=== PATIENT | female | born 1985 | race Caucasian/White ===

== ENCOUNTER 2017-10-18 06:50 | Inpatient (IN) | payer SELFPAY ==
[2017-10-18 06:55] VITALS: BMI 27.6
[2017-10-18] MEDS: Lactated Ringers 1,000 ML 50 ML IV (07:40)
[2017-10-18] MEDS: Oxytocin 30 units/NS 500 ml 30 UNITS/500 ML IV.SOLN IV (07:50)
[2017-10-18 07:57] LABS: Hematocrit 36.5 % (37-47); Mean Corp Hgb Conc 32.9 g/gl (32-36); Mean Corpuscular Hgb 30.6 pg (27.0-32.0); Mean Corpuscular Volume 93.1 fL (81-99); Mean Platelet Vol. 10.2 fl (6.2-12.0); Platelet Count 138 K/mm3 (150-450); RBC Distribution Width CV 13.4 % (11.6-14.6); RBC Distribution Width SD 45.5 fl (35.1-43.9); Red Blood Count 3.92 M/mm3 (4.2-5.4)
[2017-10-18 07:58] LABS: Scan Indicated on CBC? Y/N NO
[2017-10-18] MEDS: Nalbuphine 10 MG/ML Ampul IV ×2 (16:51→17:14)
--- NOTE | 2017-10-18 18:10 | PCM.HP.OB ---
History Date of Admission: 10/18/17 Final DONOVAN: 10/13/17 Final DONOVAN Source: US <20 weeks Gestational age: 40 Weeks and 5 Days History of this : 31-year-old 4 para 2021 at 40-5/7 weeks gestation with EDC of 10/13/2017 by last menstrual period confirmed by 14 week ultrasound presents for elective induction of labor. She denies any vaginal bleeding, leaking of fluid. She has had good movement. She has had no regular contractions Allergies No Known Allergies Allergy (Verified 10/18/17 08:00) Home Medications: Home Medications Vit No.130/Iron/FA [ Vitamins] 1 each PO DAILY 10/18/17 Smoking Status: Never smoker Alcohol: None Number of Fetus(es): 1 Heart Tracing: normal baseline, moderate variability TOCO Analysis: irreg ctxs upon admission History Past Pregnancies: Past Pregnancies Delivery Date Name GA/Weeks Outcome Route Weight Gender Labor Length Anesthesia Delivery Location Provider FOB Expected Delivery Method: Spontaneous Vaginal Review of Systems Constitutional: Denies: Chills, Fever Eyes: Denies: Blurred vision Cardiovascular: Denies: Chest Pain Respiratory: Denies: Cough Gastrointestinal: Denies: Abdominal Pain Skin: Denies: Rash Physical Exam General: Alert, Cooperative, No apparent distress Cardiovascular: Regular rate Lungs: Normal air movement Abdomen: Soft, Non Tender, Non-Distended, Gravid, Appropriate for Gestational Age Extremities:: Other - edema trace 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 Estimated weight is less than 4500 g and pelvis clinically adequate to expect vaginal delivery. Pitocin, artificial rupture membranes induction. May have epidural, nitrous oxide or Nubain as needed. Meconium-stained fluid noted upon artificial rupture membranes. Pediatrics will be present for delivery.
[2017-10-18] MEDS: Oxytocin 30 units/NS 500 ml 30 UNITS/500 ML IV.SOLN 334 UNITS IV (19:00)
[2017-10-18] MEDS: Methylergonovine 0.2 MG/ML Ampul IM (19:14)
--- NOTE | 2017-10-18 19:27 | PCM.OB.VAG ---
Vaginal Delivery Maternal Presentation: Elective Induction Method of Induction: Pitocin, Amniotomy Amniotic Membrane Rupture Type: Artificial Amniotic Fluid Description: Moderate meconium Final DONOVAN: 10/13/17 Final DONOVAN Source: US <20 weeks Gestational age: 40 Weeks and 5 Days Date of Procedure: 10/18/17 Pre-Operative Diagnosis: labor Post-Operative Diagnosis: same Surgery/ Procedure Performed: Spontaneous Vaginal Delivery Type of Anesthesia: Local with 1% lidocaine - 20cc for perineal repair Description of Procedure: A vigorous female infant was delivered FARHAT over a second-degree perineal laceration. A loose nuchal cord ?1 was easily reduced. The remainder the was delivered with maternal pushing and gentle traction only in less than 20 seconds. The Pitocin infusion was initiated for active management of the third stage. The cord was clamped and cut immediately due to the not being immediately vigorous. The infant was attended to by the waiting nursing staff. The placenta was delivered spontaneously and intact. The cervix and vagina were intact. The second-degree perineal laceration was repaired with 3-0 Vicryl suture in a running standard fashion. Sponge and needle counts were correct. A vaginal sweep was completed by me. Presentation: FARHAT Placental Delivery Description: Spontaneous Placenta Disposition: [facility] Cord Vessel Description: 3 Vessels Nuchal Cord Compression: Without compression Cord Entanglement: Around neck x 1, loose, True Knot(s) - x1 Estimated Blood Loss: 450cc Infant A gender: Female (1 minute): 7 (5 minute): 9 Episiotomy Description: None Laceration: 2nd degree - perineal laceration Medications given after delivery: IV Pitocin, IM Methergin - x1
[2017-10-18] MEDS: Oxytocin 30 units/NS 500 ml 30 UNITS/500 ML IV.SOLN 167 UNITS IV (19:45)
[2017-10-18] MEDS: Naproxen 250 MG Tablet PO (21:27)
[2017-10-19] VITALS: BP 122/64; PULSE 80; RESP 16; TEMP 36.6
[2017-10-19 04:00] VITALS: BP 103/63; PULSE 68; RESP 16; TEMP 36.7
[2017-10-19] MEDS: Naproxen 250 MG Tablet PO (08:19)
[2017-10-19 08:20] VITALS: BP 92/53; PULSE 83; RESP 16; TEMP 36.8; O2SAT 96
--- NOTE | 2017-10-19 08:57 | PCM.PN.OB ---
Subjective: No complaints - Physical Exam General: Alert, Oriented x3 Abdomen: Soft, Non Tender, Non-Distended - ff mid & umbilicus Extremities: No edema Vital Signs Temp Pulse Resp BP Pulse Ox 98.3 F 83 16 92/53 L 96 10/19/17 08:20 10/19/17 08:20 10/19/17 08:20 10/19/17 08:20 10/19/17 08:20 Oxygen Delivery Method Room Air Weight: 161 lb 2.526 oz Body Mass Index (BMI) 27.6 Intake and Output for Last 24 Hours 10/17/17 10/18/17 10/19/17 23:59 23:59 23:59 Intake Total 1233 / 1233 800 / 800 Output Total 900 / 900 Balance 333 / 333 800 / 800 Laboratory Tests Past 24 Hrs 10/18/17 07:40 Blood Type A POSITIVE Antibody Screen NEGATIVE Medical Necessity - Tobacco Use Smoking Status: Never smoker Assessment/Plan PPD#1 Routine care
[2017-10-19 11:30] VITALS: BP 100/58; PULSE 70; TEMP 36.9; O2SAT 96
[2017-10-19 16:00] VITALS: BP 99/57; PULSE 90; TEMP 36.9; O2SAT 96
[2017-10-19 20:55] VITALS: BP 103/63; PULSE 80; RESP 16; TEMP 36.9
[2017-10-19] MEDS: Senna/Docusate Sodium 1 Tablet PO (21:06)
[2017-10-20 02:35] VITALS: BP 96/58; PULSE 85; RESP 16; TEMP 36.9
[2017-10-20 08:10] VITALS: BP 94/60; PULSE 81; RESP 16; TEMP 36.3; O2SAT 99
--- NOTE | 2017-10-20 08:47 | PCM.PN.OB ---
Subjective: Doing well per patient and nursing staff. Ambulating and taking PO without difficulty. Voiding and passing flatus. Pain controlled without medication. without concerns. Denies any headaches, visual changes, chest pain, SOB, leg pain, increased vaginal bleeding or clots. Planning D/C home today. - Physical Exam General: Alert, Oriented x3, Cooperative HEENT: Atraumatic, Normocephalic Neck: Supple Lungs: Clear to auscultation, Normal air movement, No rhonchi, No wheeze Cardiovascular: Regular rate, Regular Rhythm, No murmurs Abdomen: Bowel Sounds Present, Soft, Non Tender, - - Fundus Firm 2 below U Extremities: No edema, - - Jordi's negative bilaterally Neurological: Deep Tendon Reflexes 2+/4 and Symmetrical Psych/Mental Status: Normal Affect, Appropriate Vital Signs Temp Pulse Resp BP Pulse Ox 97.3 F L 81 16 94/60 99 10/20/17 08:10 10/20/17 08:10 10/20/17 08:10 10/20/17 08:10 10/20/17 08:10 Oxygen Delivery Method Room Air Weight: 161 lb 2.526 oz Body Mass Index (BMI) 27.6 Intake and Output for Last 24 Hours 10/18/17 10/19/17 10/20/17 23:59 23:59 23:59 Intake Total 1233 / 1233 800 / 800 Output Total 900 / 900 Balance 333 / 333 800 / 800 Medical Necessity - Tobacco Use Smoking Status: Never smoker Assessment/Plan A: PPD#2 P: 1) D/C instructions given. 2) D/C home today 3) Follow up in 6 weeks with [facility]
--- NOTE | 2017-10-20 08:50 | PN.OBGYN_ITS ---
Subjective: Doing well per patient and nursing staff. Ambulating and taking PO without difficulty. Voiding and passing flatus. Pain controlled without medication. without concerns. Denies any headaches, visual changes, chest pain , SOB, leg pain, increased vaginal bleeding or clots. Planning D/C home today. - Physical Exam General: Alert, Oriented x3, Cooperative HEENT: Atraumatic, Normocephalic Neck: Supple Lungs: Clear to auscultation, Normal air movement, No rhonchi, No wheeze Cardiovascular: Regular rate, Regular Rhythm, No murmurs Abdomen: Bowel Sounds Present, Soft, Non Tender, - - Fundus Firm 2 below U Extremities: No edema, - - Jordi's negative bilaterally Neurological: Deep Tendon Reflexes 2+/4 and Symmetrical Psych/Mental Status: Normal Affect, Appropriate Vital Signs Temp Pulse Resp BP Pulse Ox 97.3 F L 81 16 94/60 99 10/20/17 08:10 10/20/17 08:10 10/20/17 08:10 10/20/17 08:10 10/20/17 08:10 Oxygen Delivery Method Room Air Weight: 161 lb 2.526 oz Body Mass Index (BMI) 27.6 Intake and Output for Last 24 Hours 10/18/17 10/19/17 10/20/17 23:59 23:59 23:59 Intake Total 1233 / 1233 800 / 800 Output Total 900 / 900 Balance 333 / 333 800 / 800 Medical Necessity - Tobacco Use Smoking Status: Never smoker Assessment/Plan A: PPD#2 P: 1) D/C instructions given. 2) D/C home today 3) Follow up in 6 weeks with [facility]
--- NOTE | 2017-10-20 08:51 | DCINST_ITS ---
Discharge Diet: No Restrictions Discharge Activity: Return to Normal Activity, May not drive while taking narcotic pain medications., May Shower May resume sexual activity in: 4-6 weeks Weight Bearing Status: Weight bearing as tolerated Call your doctor if your incision/area has: Sudden Increased Bleeding, Increased Pain/ Swelling, Increased Redness, Foul Smelling Discharge Call your doctor if you observe: Fever of 101 or Higher, Numbness or Tingling, Inability to urinate, Inability to have a bowel movement, Using more than one pad per hour, Shortness of breath, Chest pain, Increased palpitations ( irregular heartbeat), Calf discomfort, Uncontrolled pain Additional Instructions: If you experience any of the following, contact your healthcare provider. * Bleeding that soaks a pad every hour for 2 hours * Fever 100.4 or higher * Unrelieved incision or abdominal pain * Swelling, redness, discharge or bleeding from your incision or episiotomy site * Your incision begins to separate * Problems urinating (including inability to urinate or burning while urinating) . * Visual changes * Severe headache * Flu-like symptoms * Pain or redness in one of both of your breasts * Pain, warmth, tenderness or swelling in your legs, especially the calf area * Frequent nausea and vomiting * Symptoms of depression or anxiety If you experience any of the following, call 911 or go to the nearest Emergency Room. * Chest pain * Problems breathing * Seizure activity * Partial or complete paralysis of a body part, slurred speech, weakness or drooping of the face, or a sudden inability to walk or hold your balance Allergies/Adverse Reactions: Allergies No Known Allergies Allergy (Verified 10/18/17 08:00) Medications to take at Discharge Vit No.130/Iron/FA [ Vitamins] 1 each PO DAILY 10/18/17 Please Follow Up With: Sabina Hinton MD When: Call to make an appointment with your doctor in 6 weeks. If you had elevated Blood Pressure or 4th degree laceration you will need to be seen in 2 weeks. Primary Care Physician: Care Physician,No Primary [Primary Care Provider] - Test Results: Test results from this visit will be discussed in further detail at your follow- up appointment, if applicable.
--- NOTE | 2017-10-20 10:43 | NURSING ---
pt refused rubella injection
== END 2017-10-20 10:35 | disposition home or self-care (01) | DRG 775 ==
PROVIDERS: Admitting Provider Obstetrics & Gynecology; Visit Provider Obstetrics & Gynecology
DX: O48.0 Post-term pregnancy (principal); Z3A.40 40 weeks gestation of pregnancy; Z37.0 Single live birth; O77.0 Labor and delivery complicated by meconium in amniotic fluid; O70.1 Second degree perineal laceration during delivery; O69.2XX0 Labor and delivery complicated by other cord entanglement, with compression, not applicable or unspecified
CPT/HCPCS: 59025; 59050; 85027; 86850; 86900; 99218; J7120; G0378

== ENCOUNTER 2020-10-02 18:45 | Inpatient (IN) | payer SELFPAY ==
[2020-10-02] VITALS (27 sets, daily range): BP systolic 108–125; BP diastolic 69–74; PULSE 73–95; TEMP 36.6–37.3; O2SAT 95–99; BMI 28.0
--- NOTE | 2020-10-02 19:40 | PCM.HP.OB ---
HPI - General General Date of Admission: 10/02/20 Date of Service: 10/02/20 Chief Complaint: induction of labor HPI Narrative JUAN PABLO SOMMERS, 6 para 3-0-2-3 with DNOOVAN of 09/30/2020 presents for induction of labor. She is 40 weeks and 2 days gestation. She denies any vaginal bleeding or leaking of fluid. She is had good movement. She denies any regular contractions. has been uncomplicated to date. Maternal Data Information Final DONOVAN: 09/30/20 Gestational age: 40 2/7 PFSH PFSH Home Medications vit no.084-glig-[id number] [ Vitamin] 1 ea PO DAILY 10/18/17 [History Last Taken 1 Day Ago ~10/17/17] acetaminophen 1,000 mg PO Q8H PRN PRN tablet 10/20/17 [Rx Last Taken Unknown] naproxen 250 - 500 mg PO Q8H PRN PRN tablet 10/20/17 [Rx Last Taken Unknown] Allergy/AdvReac Type Severity Reaction Status Date / Time No Known Allergies Allergy Verified 10/18/17 08:00 Social History Smoking Status: Never smoker History Elective abortions Hx Para 2 Spontaneous abortions Hx # Term Pregnancies Ectopic pregnancies Hx # Pregnancies Multiple births # of living children ROS Constitutional Constitutional: Denies fatigue, fever(s) or malaise Eyes Eyes: Denies change in vision ENT HEENT: Denies dizziness or headache(s) Cardiovascular Cardiovascular: Denies chest pain, dyspnea or lightheadedness Respiratory/Chest Respiratory/Chest: Denies cough or dyspnea Gastrointestinal Gastrointestinal: Denies change in bowel habits Genitourinary Genitourinary: Denies burning urination or genital lesions Integumentary Integumentary: Denies rash Neurologic Neurologic: Denies confusion, dizziness, headache(s), numbness or weakness Physical Exam Const alert and no apparent distress General Appearance: cooperative HEENT normocephalic Resp normal respiratory effort Cardio regular rate GI soft to palpation GI Narrative: gravid, nontender, appropriate for gestational age Extremity no calf tenderness General Extremity: edema Skin no wounds Rashes: No rashes noted Psych activity/motor behavior normal Labs Labs Labs: Blood Type A POSITIVE Antibody Screen NEGATIVE Hct 36.5 % (37-47) L Hgb 12.0 g/dl (12.0-15.0) Rhogam given: No Assessment & Plan (1) 40 weeks gestation of : (2) History of macrosomia in infant in prior , currently : (3) Encounter for induction of labor: (4) Encounter for supervision of other normal , third trimester: PLAN: Risk benefits and alternatives to induction of labor been discussed with the patient, questions were answered to her satisfaction and consent was signed. Will likely undergo Jewell cervical ripening with Pitocin and artificial rupture of membranes. Estimated weight is less than 4500 g clinically and pelvis clinically adequate to expect vaginal delivery. May have epidural, use nitrous oxide or IV medications as needed for pain control.
[2020-10-02 20:41] LABS: Absolute Neutrophil Count 5.5 X10^3/uL (2.0-7.7); Basophil# 0.02 X10^3/uL; Basophil% 0.2 % (0-1); Eosinophil# 0.05 X10^3/uL; Eosinophils% 0.6 % (0-5); Hematocrit 33.3 % (37-47); Hemoglobin 11.3 g/dL (12.0-15.0); Lymphocyte % 23.1 % (19-41); Mean Corp Hgb Conc 33.9 g/dL (32-36); Mean Corpuscular Hgb 30.7 pg (27.0-32.0); Mean Corpuscular Volume 90.5 fL (81-99); Mean Platelet Vol. 10.7 fl (6.2-12.0); Monocyte# 0.65 X10^3/uL; Monocyte% 7.9 % (0-10); NRBC Flagged by Analyzer 0 % (0-5); Neutrophil # 5.53 X10^3/uL (2.7-7.7); Neutrophil % 67.5 % (47-70); Platelet Count 162 K/mm3 (150-450); RBC Distribution Width CV 13.3 % (11.6-14.6); RBC Distribution Width SD 44.4 fl (35.1-43.9); Red Blood Count 3.68 M/mm3 (4.2-5.4); White Blood Count 8.2 K/mm3 (4.4-11.0)
[2020-10-02] MEDS: 0.9% Normal Saline Single 100 ML IV.SOLN. INTRA-UTER (21:30)
[2020-10-02] MEDS: Lactated Ringers 500 ML 999 ML IV (22:52)
[2020-10-02] MEDS: Lactated Ringers 1,000 ML 200 ML IV (23:23)
[2020-10-03] VITALS (48 sets, daily range): BP systolic 78–124; BP diastolic 52–74; PULSE 71–90; RESP 16; TEMP 36.2–37; O2SAT 83–100
[2020-10-03] MEDS: fentaNYL-bupivacaine (epidural) 100 ML BAG EPIDURAL ×2 (00:02→05:02)
[2020-10-03] MEDS: Lactated Ringers 500 ML 999 ML IV ×2 (00:33→06:00)
[2020-10-03] MEDS: Oxytocin 30 units/NS 500 ml 30 UNITS/500 ML IV.SOLN IV (00:47)
[2020-10-03] MEDS: Lactated Ringers 1,000 ML 200 ML IV (05:02)
[2020-10-03] MEDS: Oxytocin 30 units/NS 500 ml 30 UNITS/500 ML IV.SOLN 334 UNITS IV (08:34)
--- NOTE | 2020-10-03 08:40 | EX.PCM.OBRPT ---
Assessment & Plan (1) Normal vaginal delivery: (2) 40 weeks gestation of : Maternal Data Information Final DONOVAN: 09/30/20 Gestational age: 40w3d Vaginal Delivery Maternal Presentation Maternal Presentation: Elective Induction Maternal Presentation: history of previous macrosomic Type of Induction: Pitocin, Jewell Bulb and Amniotomy Operative Information Date of Procedure: 10/03/20 Pre-Operative Diagnosis: labor Post-Operative Diagnosis: same Surgery / Procedure Performed: Spontaneous Vaginal Delivery Type of Anesthesia: None and Epidural Special Medications: none Drain: Jewell to straight drain Estimated Blood Loss: 200 Time of Delivery: 08:32 Findings Description of Procedure: A vigorous male infant was delivered FARHAT over a small first-degree perineal laceration. A loose nuchal cord ?1 was easily reduced. The remainder the was delivered with maternal pushing and gentle traction only in less than 15 seconds. The Pitocin infusion was initiated for active management of the third stage. The cord was clamped and cut after 1 minute. The was attended to by the waiting nursing staff. The placenta was delivered spontaneously and intact. The cervix and vagina were intact. The small laceration was hemostatic and not repaired. Sponge and needle counts were correct. A vaginal sweep was completed by me. Presentation: FARHAT Amniotic Membrane Rupture Type: Artificial Amniotic Fluid Description: Clear Placental Delivery Description: Spontaneous Placenta Disposition: [facility] Cord Vessel Description: 3 Vessels Cord Entanglement: Around neck x 1, loose Nuchal Cord Compression: Without compression A Gender: Male (1 minute): 8 (5 minute): 9 Delayed Cord Clamping: Yes Admit VTE Documentation VTE Present on Admission: No VTE Mechan Device Prophylaxis: None VTE Pharm Prophylaxis Ordered: No Reason Prophylaxis Not Ordered: Procedure Not Indicated
[2020-10-04 00:55] VITALS: BP 99/56; PULSE 77; RESP 16; TEMP 36.2; O2SAT 96
[2020-10-04 04:53] VITALS: BP 97/56; PULSE 83; RESP 16; TEMP 36; O2SAT 97
--- NOTE | 2020-10-04 08:07 | PCM.PN.OB ---
Subjective Subjective Patient seen at bedside. infant. Feeling good. Ambulating and voiding without difficulty. Denies any pain. Desires discharge home today. Objective Data Objective Data Vital Signs: Vital Signs Temp Pulse Resp BP Pulse Ox 96.8 F L 83 16 97/56 L 97 10/04/20 04:53 10/04/20 04:53 10/04/20 04:53 10/04/20 04:53 10/04/20 04:53 Oxygen Delivery Method Room Air Weight: 163 lb 12.855 oz Body Mass Index (BMI) 28.0 Intake & Output: Intake and Output for Last 24 Hours 10/02/20 10/03/20 10/04/20 23:59 23:59 23:59 Intake Total 500 / 500 3730.57 / 3730.57 Output Total 4500 / 4500 Balance 500 / 500 -769.43 / -769.43 Lab / Micro Data Result Diagrams: 10/02/20 20:00 ROS Eyes Eyes: Denies blurry vision, change in vision or spots in vision ENT HEENT: Denies dizziness or headache(s) Cardiovascular Cardiovascular: Denies abdominal pain, chest pain or dyspnea Respiratory/Chest Respiratory/Chest: Denies cough, dyspnea, shortness of breath at rest or shortness of breath with exertion Gastrointestinal Gastrointestinal: Denies abdominal pain, diarrhea or vomiting Genitourinary Genitourinary: Denies change in urinary stream, difficulty urinating or dysuria Musculoskeletal Musculoskeletal: Reports none Integumentary Integumentary: Denies rash Neurologic Neurologic: Denies dizziness, headache(s), memory loss or weakness Physical Exam Const alert and no apparent distress General Appearance: cooperative and comfortable Exam Limitations: no limitations HEENT normocephalic Eyes General Eye: normal appearance of both eyes Neck full ROM General: normal visual inspection Chest Chest: symmetrical chest wall rise Resp normal respiratory effort and normal air movement Effort and Inspection: symmetric chest movement Auscultation: clear to auscultation bilaterally Cardio regular rate and regular rhythm GI normal to inspection, nondistended, normoactive bowel sounds Back/Spine normal ROM Extremity full ROM and no calf tenderness General Extremity: normal exam except as noted Skin no rashes or lesions noted Neuro CN's II-XII intact bilaterally Psych mental status grossly normal Assessment & Plan (1) Normal vaginal delivery: PLAN: PPD #1 Routine care Breast feeding support Discharge home
--- NOTE | 2020-10-04 08:09 | PCM.DC ---
Discharge Instructions Diet Discharge Diet: No restrictions Activity May resume sexual activity in: 6-8 weeks Weight Bearing Status: Weight bearing as tolerated Dressing / Incision Call your doctor if you observe: Fever of 101 or Higher, Inability to urinate, Using more than 1 pad per hour, Shortness of breath, Chest pain, Calf discomfort and Uncontrolled pain Follow Up Care Please Follow Up With: Hilda Guillermo CNM When: 2 weeks virtual visit/ 6 weeks in office Test Results: Test results from this visit will be discussed in further detail at your follow-up appointment, if applicable. Discharge Plan Admission Admit Date/Time: 10/02/20 18:45 Primary Reason for Your Visit: Induction of labor Attending Provider: Sabina Hinton Primary Care Provider: Care Physician,No Primary Instructions Patient Instructions: After a Vaginal , Breast Care After Discharge Orders/Prescriptions Prescriptions: Continued Vitamin 1 EACH tablet 1 ea PO DAILY RF: 0 Discontinued acetaminophen 500 MG tablet 1,000 mg PO Q8H PRN PRN (Reason: MILD PAIN (1-3/10)/Temp>99.6F) RF: 0 Referrals / Follow Up: Care Physician,No Primary [Primary Care Provider] - Disposition Disposition (needs filled in before D/C Order can be placed): Home, Self Care
[2020-10-04 08:30] VITALS: BP 106/51; PULSE 69; RESP 16; TEMP 36.6; O2SAT 96
[2020-10-04 13:03] VITALS: BP 101/63; PULSE 80; RESP 16; TEMP 36.2
--- NOTE | 2020-10-09 17:23 | NURSING ---
no answer on the follow up phone call left voice mail
== END 2020-10-04 13:39 | disposition home or self-care (01) | DRG 807 ==
PROVIDERS: Admitting Provider Obstetrics & Gynecology; Visit Provider Obstetrics & Gynecology
DX: O69.81X0 Labor and delivery complicated by cord around neck, without compression, not applicable or unspecified (principal); O70.0 First degree perineal laceration during delivery; Z37.0 Single live birth; Z3A.40 40 weeks gestation of pregnancy
CPT/HCPCS: 59025; 59050; 85025; 86850; 86900; 86901; 99218; J7120; G0378

== ENCOUNTER → 2022-09-18 | Outpatient (CLI) | payer SELFPAY ==
[2022-09-22 00:07] LABS: Chlamydia By Nucleic Acid AMP Negative (Negative); Gonococcus By Nucleic Acid AMP Negative (Negative)
[2022-09-23 16:09] LABS: HPV APTIMA, High Risk Negative (Negative)
== END | disposition home or self-care (01) ==
LOC: LABSPEC 16:04
PROVIDERS: Referring Provider Obstetrics & Gynecology; Visit Provider Obstetrics & Gynecology
DX: Z34.90 Encounter for supervision of normal pregnancy, unspecified, unspecified trimester (principal); Z3A.00 Weeks of gestation of pregnancy not specified
CPT/HCPCS: 87086; 87491; 87591; 87624; 88175; G0145

== ENCOUNTER → 2022-11-26 | Outpatient (CLI) | payer SELFPAY, OTHER ==
--- NOTE | 2022-11-26 12:20 | US_ITS ---
STUDY: SECOND AND THIRD TRIMESTER OBSTETRICAL ULTRASOUND REASON FOR EXAM: Female, 37 years old anatomy scan TECHNIQUE: Transabdominal and Transvaginal PRIOR ULTRASOUND: None. FINDINGS: There is a single intrauterine fetus. The fetus is in a transverse lie with the head on the maternal right side. There is demonstrated cardiac activity with a heart rate of 161 bpm. There is a normal amniotic fluid volume. The largest amniotic fluid pocket measures 4.7 cm. The placenta is anterior in location and is not low lying. There are Grade 0 placental changes. The cervix measures 3.9 cm in length and closed. The bilateral adnexal regions are normal. BPD: 4.8 cm = 20 weeks, 3 day(s) HC: 17.9 cm = 20 weeks, 3 day(s) AC: 15.5 cm = 20 weeks, 5 day(s) FL: 3.2 cm = 19 weeks, 6 day(s) EGA by ultrasound: 20 weeks 3 day(s) DONOVAN by ultrasound: 04/12/2023 Estimated weight: 349 grams Weight percentile: 33% ANATOMY: Gender: Refer to tech notes. Mother does not want to know gender. Cranium: Normal lateral ventricles. Normal choroid plexus. Normal cerebellum. Normal cisterna magna. Normal face, nose and lips. Chest: Normal 4-chamber heart. Abdomen/Pelvis: Normal diaphragm. Normal stomach. Normal abdominal wall. Normal cord insertion. Normal 3 vessel cord. Normal kidneys. Normal bladder. Spine: Normal cervical spine. Normal thoracic spine. Normal lumbar spine. Normal sacrum. Extremities: Normal bilateral upper extremities. Normal bilateral lower extremities. US/OB Anatomy w/ Transvaginal IMPRESSION: Living intrauterine with estimated gestational age of 20 weeks and 3 days. No obvious anomalies. EFW is 349 g which is in the 33rd percentile. Electronically Signed: Javier Cordero MD at 21:05 EDT ,
[2022-11-26 14:08] LABS: Absolute Lymphocyte Count 2.33 X10^3/uL (0.83-4.51); Basophil# 0.05 X10^3/uL; Basophil% 0.4 % (0-1); Eosinophil# 0.04 X10^3/uL; Eosinophils% 0.3 % (0-5); Hematocrit 30.9 % (37-47); Hemoglobin 10.1 g/dL (12.0-15.0); Lymphocyte # 2.33 X10^3/ul (0.83-4.51); Lymphocyte % 18.9 % (19-41); Mean Corp Hgb Conc 32.7 g/dL (32-36); Mean Corpuscular Hgb 29.5 pg (27.0-32.0); Mean Corpuscular Volume 90.4 fL (81-99); Mean Platelet Vol. 9.8 fl (6.2-12.0); Monocyte% 6.5 % (0-10); NRBC Flagged by Analyzer 0 % (0-5); Neutrophil # 8.95 X10^3/uL (2.7-7.7); Neutrophil % 72.6 % (47-70); Platelet Count 226 K/mm3 (150-450); RBC Distribution Width CV 14.7 % (11.6-14.6); RBC Distribution Width SD 47.8 fl (35.1-43.9); Red Blood Count 3.42 M/mm3 (4.2-5.4); White Blood Count 12.3 K/mm3 (4.4-11.0)
[2022-11-26 15:40] LABS: HIV - WCH Non-Reactive (Nonreactive); Hepatitis B Surface Antigen Non-Reactive (Nonreactive); Hepatitis C Antibody Non-Reactive (Nonreactive); Rubella IgG Non-Reactive (Nonreactive); Syphilis Antibodies Non-reactive
== END | disposition home or self-care (01) ==
PROVIDERS: Obstetrics & Gynecology; Referring Provider Obstetrics & Gynecology; Visit Provider Obstetrics & Gynecology
DX: O09.90 Supervision of high risk pregnancy, unspecified, unspecified trimester (principal); Z3A.00 Weeks of gestation of pregnancy not specified
CPT/HCPCS: 36415; 76805; 76817; 85025; 86703; 86762; 86780; 86803; 86850; 86900; 86901; 87340

== ENCOUNTER → 2023-01-20 | Outpatient (CLI) | payer OTHER, SELFPAY ==
[2023-01-20 07:23] LABS: Absolute Lymphocyte Count 1.91 X10^3/uL (0.83-4.51); Absolute Neutrophil Count 8.4 X10^3/uL (2.0-7.7); Basophil# 0.05 X10^3/uL; Basophil% 0.4 % (0-1); Eosinophil# 0.08 X10^3/uL; Eosinophils% 0.7 % (0-5); Hematocrit 28.2 % (37-47); Hemoglobin 8.9 g/dL (12.0-15.0); Lymphocyte # 1.91 X10^3/ul (0.83-4.51); Lymphocyte % 16.5 % (19-41); Mean Corp Hgb Conc 31.6 g/dL (32-36); Mean Corpuscular Hgb 29.3 pg (27.0-32.0); Mean Corpuscular Volume 92.8 fL (81-99); Mean Platelet Vol. 9.7 fl (6.2-12.0); Monocyte# 0.93 X10^3/uL; Monocyte% 8.1 % (0-10); NRBC Flagged by Analyzer 0 % (0-5); Neutrophil # 8.35 X10^3/uL (2.7-7.7); Neutrophil % 72.3 % (47-70); Platelet Count 200 K/mm3 (150-450); RBC Distribution Width CV 13.5 % (11.6-14.6); RBC Distribution Width SD 46.3 fl (35.1-43.9); Red Blood Count 3.04 M/mm3 (4.2-5.4); White Blood Count 11.6 K/mm3 (4.4-11.0)
[2023-01-20 07:45] LABS: Glucose GTT-Gestation. Fasting 98 mg/dL (<105)
[2023-01-20 08:35] LABS: Glucose GTT-Gestational 1 Hr 160 mg/dL (<190)
[2023-01-20 08:51] LABS: HIV - WCH Non-Reactive (Nonreactive); Syphilis Antibodies Non-reactive
[2023-01-20 09:55] LABS: Glucose GTT-Gestational 2 Hr 173 mg/dL (<165)
[2023-01-20 11:32] LABS: Ferritin 7 ng/mL (8-252); Iron 85 ug/dL (50-170); Iron Binding Capacity,Total 613 ug/dL (250-450); PERCENT IRON SATURATION 13.9 % (15.0-55.0)
[2023-01-20 11:40] LABS: Glucose GTT-Gestational 3 Hr 128 L (<145)
== END | disposition home or self-care (01) ==
PROVIDERS: Registered Nurse; Referring Provider Advanced Practice Midwife; Visit Provider Advanced Practice Midwife
DX: Z13.1 Encounter for screening for diabetes mellitus (principal); O99.019 Anemia complicating pregnancy, unspecified trimester; Z3A.00 Weeks of gestation of pregnancy not specified
CPT/HCPCS: 36415; 82728; 82950; 82951; 82952; 83540; 83550; 85025; 86703; 86780

== ENCOUNTER → 2023-02-26 | Outpatient (CLI) | payer OTHER, SELFPAY ==
[2023-02-26 15:12] LABS: Absolute Lymphocyte Count 1.74 X10^3/uL (0.83-4.51); Absolute Neutrophil Count 8.5 X10^3/uL (2.0-7.7); Basophil# 0.05 X10^3/uL; Basophil% 0.4 % (0-1); Eosinophil# 0.05 X10^3/uL; Eosinophils% 0.4 % (0-5); Hematocrit 31.4 % (37-47); Hemoglobin 10.1 g/dL (12.0-15.0); Lymphocyte # 1.74 X10^3/ul (0.83-4.51); Lymphocyte % 15.3 % (19-41); Mean Corp Hgb Conc 32.2 g/dL (32-36); Mean Corpuscular Hgb 30.5 pg (27.0-32.0); Mean Corpuscular Volume 94.9 fL (81-99); Mean Platelet Vol. 10.2 fl (6.2-12.0); Monocyte# 0.91 X10^3/uL; NRBC Flagged by Analyzer 0 % (0-5); Neutrophil # 8.46 X10^3/uL (2.7-7.7); Neutrophil % 74.5 % (47-70); Platelet Count 172 K/mm3 (150-450); RBC Distribution Width CV 15.5 % (11.6-14.6); Red Blood Count 3.31 M/mm3 (4.2-5.4); White Blood Count 11.4 K/mm3 (4.4-11.0)
== END | disposition home or self-care (01) ==
LOC: LAB 14:08
PROVIDERS: Referring Provider Advanced Practice Midwife; Visit Provider Advanced Practice Midwife
DX: O09.529 Supervision of elderly multigravida, unspecified trimester (principal); O99.019 Anemia complicating pregnancy, unspecified trimester
CPT/HCPCS: 36415; 85025

== ENCOUNTER → 2023-03-18 | Outpatient (CLI) | payer OTHER, SELFPAY ==
--- NOTE | 2023-03-18 13:54 | US_ITS ---
EXAM: US , LIMITED CLINICAL INDICATION: growth TECHNIQUE: Real-time limited ultrasound of the maternal uterus with image documentation. COMPARISON: 11/26/2022 FINDINGS: GESTATIONAL AGE: Estimated gestational age: 38 weeks, 3 days compared to 36 weeks, 4 days by dates. DONOVAN: 03/29/2023 based on size. EFW: Estimated weight: 3566 g (94.7%). BPD: 9.21 cm. HC: 34.35 cm. AC: 35.42 cm. FL: 7.34 cm. POSITION: position is transverse right. HEART RATE: heart rate is 138 bpm. PLACENTA: Anterior placenta. AMNIOTIC FLUID: Amniotic fluid volume is 16.5 cm. CERVIX: The cervix is closed measuring 6.8 cm. ADNEXA: The maternal ovaries are not visualized. US/OB Limited With Biometrics IMPRESSION: Single viable IUP with an estimated gestational age of 38 weeks, 3 days by size compared to 36 weeks, 4 days by dates. 3566 g. Electronically Signed: Tomas Hernandez DO at 23:46 EST ,
== END | disposition home or self-care (01) ==
PROVIDERS: Visit Provider Obstetrics & Gynecology
DX: O09.529 Supervision of elderly multigravida, unspecified trimester (principal); O24.419 Gestational diabetes mellitus in pregnancy, unspecified control; Z3A.00 Weeks of gestation of pregnancy not specified
CPT/HCPCS: 76816

== ENCOUNTER → 2023-03-24 | Outpatient (CLI) | payer OTHER, SELFPAY | END | disposition home or self-care (01) | LOC: LABSPEC 13:23 | PROVIDERS: Visit Provider Obstetrics & Gynecology | DX: Z34.90 Encounter for supervision of normal pregnancy, unspecified, unspecified trimester (principal) | CPT/HCPCS: 87081 ==

== ENCOUNTER 2023-03-30 09:15 | Outpatient (CLI) | payer OTHER, SELFPAY ==
--- NOTE | 2023-03-30 09:26 | US_ITS ---
INDICATION: per doctor order EXAMINATION: Ultrasound US Biophysical Profile W/O Nonst TECHNIQUE: Transabdominal pelvic ultrasound was performed. COMPARISON: Prior study dated: 03/18/2023. LMP: Unknown. Beta-hCG: Unknown. Provided EGA: None. FINDINGS: INTRAUTERINE GESTATION(s): Single. HEART MOTION is 155 bpm. AMNIOTIC FLUID INDEX (GURVINDER): 1.2 cm, largest amniotic pocket measures 4.3 cm. BIOPHYSICAL PROFILE (BPP): 11/03 -- Breathin/2. -- Movement: 2/2. -- Tone: 2/2. --GURVINDER: 2/2. PRESENTATION: Cephalic PLACENTA: Anterior. There is no placenta previa or abruption. There is a grade 2 placenta. CERVIX: Cervix is not visualized. MATERNAL OVARIES: Not visualized. FREE FLUID: None. US/Biophysical Prof W/O Non Stres IMPRESSION: Normal GURVINDER with a score of 8 out of 8. Electronically Signed: Ming Vargas MD at 10:39 EST ,
[2023-03-30 09:30] VITALS: BP 107/62; PULSE 107
[2023-03-30 09:31] VITALS: TEMP 36.6; O2SAT 99
[2023-03-30 09:32] VITALS: PULSE 111; O2SAT 100
[2023-03-30 09:59] VITALS: BMI 27.3
--- NOTE | 2023-03-30 10:36 | OB.TRI.PN ---
Progress Notes Date of Service: 03/30/23 Progress Note: Patient presents for triage evaluation secondary to tachycardia in office FHT: 150 Moderate variability reactive no decelerations category I tracing [place]: no Contractions Assessment and plan: BPP 11/03, Reactive NST, reassuring maternal and status patient discharged to home to follow-up at next appt. See problem list details for additional plan information. Charges/Coding Multi Select Codes Urinary/Genital Urinary/Genital CPT Codes: 78888-97 non-stress test Interp Assessment & Plan (1) Sterilization: COMMENT: plan PPTL PPD, will try and schedule in advance because IOL is scheduled. 18 IOL and 04/06 PPTL with JV if able or SM (2) Transverse lie of fetus: COMMENT: Resolved (3) Gestational diabetes: QUALIFIERS: Gestational diabetes mellitus control: diet-controlled COMMENT: QID testing, nutrition counseling. starting metformin 03/10/23 (4) Anemia affecting : COMMENT: iron binding levels iron infusions- symptomatic at 8.9 (5) Anxiety during : COMMENT: on zoloft, counseling recommended/encouraged. (6) AMA (advanced maternal age) multigravida 35+: COMMENT: declines genetic screening, discussed 36 week growth US and delivery by 39-40 weeks (7) Family history of autism in sibling: COMMENT: niece(sister's child) (8) Supervision of high-risk : COMMENT: PRR , DONOVAN 04/12/23, PC Peg Reddy Ellie, Alvin, Ad (9) : QUALIFIERS: Weeks of gestation: 37 weeks Qualified Code(s): Z3A.37 - 37 weeks gestation of COMMENT: normal anatomy. declined genetic & carrier testing
== END 2023-03-30 11:15 | disposition home or self-care (01) ==
LOC: WPOUT 09:25 → WP 09:25
PROVIDERS: Referring Provider Obstetrics & Gynecology; Visit Provider Obstetrics & Gynecology
DX: O36.8330 Maternal care for abnormalities of the fetal heart rate or rhythm, third trimester, not applicable or unspecified (principal); O32.2XX0 Maternal care for transverse and oblique lie, not applicable or unspecified; Z3A.37 37 weeks gestation of pregnancy; O24.410 Gestational diabetes mellitus in pregnancy, diet controlled; O99.013 Anemia complicating pregnancy, third trimester; O99.343 Other mental disorders complicating pregnancy, third trimester; F41.9 Anxiety disorder, unspecified; O09.513 Supervision of elderly primigravida, third trimester; R00.0 Tachycardia, unspecified
CPT/HCPCS: 59025; 59050; 76819; 99221; G0378

== ENCOUNTER 2023-04-05 06:55 | Inpatient (IN) | payer SELFPAY, OTHER ==
[2023-04-05] VITALS (65 sets, daily range): BP systolic 92–138; BP diastolic 50–73; PULSE 65–95; TEMP 36.3–37.2; O2SAT 98–100; BMI 28.0
--- OUTSIDE RECORDS SUMMARY | 2023-04-05 07:01 | XMS RPT_ITS | CCD ---
Author Name Unknown Address [address] [place] [address] Organization [facility] Care Team Providers Care Remelt Worker Name Role Phone Unavailable Primary Care Provider Unavailabl e Medications Completed/Discontinued Medications Medication Drug Class(es) Dates Sig (Normalized) Sig (Original) NUTRITIONAL SUPPLEMENT/FIBER (ORANGE [id number] ORAL) (1 source) NUTRITIONAL SUPPLEMENT/FIBER (ORANGE [id number] ORAL) Take by mouth. 0 Active Problems Problem Classification Problem Date Documented Date Episodic/Chronic Endometriosis (1 source) Endometriosis (clinical); Translations: [Endometriosis, unspecified] Onset: 04-16-2017 04-16-2017 Chronic Results Test Name Value Interpretation Reference Range Facil ity Encounters Encounter Date Encounter Type Care Provider Facility Start: 08-26-2022 Telephone encounter Sabina Hinton MD Work Phone: OB/Gynecology Procedures Date Procedure Procedure Detail Performing Clinician Start: 03-27-2020 Antibody screen Plan of Treatment Date Care Activity Detail Author Start: 11-30-2024 HPV TESTING HPV TESTING [facility] Start: 11-30-2024 PAP TESTING PAP TESTING [facility] Start: 11-27-2022 Influenza vaccination INFLUENZA (Sea son Ended) [facility] Start: 03-29-2022 DEPRESSION ASSESSMENT DEPRESSION ASS ESSMENT [facility] Start: 10-21-2006 Urine microalbumin profile DTAP,TDAP ,TD (1 - Tdap) [facility] Start: 04-23-1988 COVID-19 VACCINE (#1) COVID-19 VACCI NE (#1) [facility] Start: 1985 HEPATITIS B (1 of 3 - 3-dose series) HEPATITIS B (1 of 3 - 3-dose series) [facility] Social History Date Type Detail Facility Start: 04-08-2017 Tobacco smoking stat us INIS Never smoked tobacco [facility] Work Phone: Start: 04-08-2017 Tobacco use and exposure Smokeless tobacco non-user [facility] Work Phone: Start: 11-19-2020 Alcohol intake Current non-dr orchid transplanter of alcohol (finding) [facility] Start: 03-18-2020 Education 8 [facility] Start: 1985 Sex Assigned At Not on file C [facility] Medical Equipment Procedure Code Equipment Code Equipment Origin al Text Equipment Identifier Dates Start: 07-22-2020 End: 08-26-2022 Note 09-02-2022 Telephone Encounter - Sarah Rojas RN - 09/02/2022 10:49 AM EDTTelephone Encounter - Trish Cabrera RN - 09/02/2022 8:05 AM EDTTelephone Encounter - Sabina Hinton MD - 08/28/2022 2:22 PM EDT Note Date & Type Note Facility 09-02-2022 Miscellaneous Notes Formattin g of this note might be different from the original. Spoke with patient. Notified of the below information and message from Dr. Hinton. Aware this was addressed with administration last week. Patient voiced her appreciation for the efforts, however she plans to give a new office a try. If she is unhappy there, she will likely come back to our office. Again, voiced her appreciation to Dr. Hinton and staff. Sarah Rojas RN Left message for patient to return yassine call. I have also given this message to Eladia to share with Admin Please forward this complaint to admin. We have lost a lot of self pain/religous pay patients for this. Tell her I will do my best to save her appointments on certain days to help w/ her arranging transport because I certainly understand this frustration. I also try to space out appointments for average risk patients so they don't have to come every 2 weeks exactly to help w/ this burden. Sabina Hinton MD Patient notified. Transferred to director of financial aid to schedule PNOB and NOB. Patient voiced her frustration about the self pay process. She is unable to schedule appointments ahead of time with the financial advocates. She's told that only one appointment at a time can be set up. Patient states this is very difficult with arranging for transportation especially in the third trimester. Because of this she may or may not continue to be seen with the Clinic. Sarah Rojas RN Left message for patient to call office. Sarah Rojas RN schedule PNOB and NOB. Rx ordered. Sabina Hinton MD Patient called stating that she is . Lmp: 07/12/2022. Is c/o nausea that is lasting until from the time that she wakes up until around 3 pm. Patient states during previous she tried taking otc b6 and unisom and it was not effective and is hoping that she can get a Rx. Phone number listed is a message number only.Patient was not able to schedule appointment for Pnob d/t no Self pay referral entered. Nurse entered referral. documented in this encounter [facility] History of Past illness Narrative 07-22-2020 Note Date & Type Note Facility documented as of this encounter (statuses as of 09/02/2022) [facility] Summary Purpose Family History No Family History Records FoundNo Family History Records Found Advance Directives No Advanced Directives Records FoundNo Advanced Directives Records Found Additional Source Comments INFORMATION SOURCE (unrecogn ized section and content) DATE CREATED AUTHOR AUTHOR'S ORGANIZ ATION 09/07/2022 [facility] Source Comments (unrecognize d section and content) In the event this informatio n is protected by the Federal Confidentiality of Alcohol and Drug Abuse Patient Records regulations: The Federal rules restrict any use of the information to criminally investigate or prosecute any alcohol or drug abuse patient.[facility] Reason for Visit (unrecogniz ed section and content) FOR RECORDS PERTAINING TO PATIENTS WHO ARE OR HAVE BEEN ENROLLED IN A CHEMICAL DEPENDENCY/SUBSTANCEABUSE PROGRAM, SOME INFORMATION MAY BE OMITTED. This clinical summary was aggregated from multiple sources. Caution should be exercised in using it in the provision of clinical care. This summary normalizes information from multiple sources, and as a consequence, information in this document may materially change the coding, format and clinical context of patient data. In addition, data may be omitted in some cases. CLINICAL DECISIONS SHOULD BE BASED ON THE PRIMARY CLINICAL RECORDS. [facility]. provides no warranty or guarantee of the accuracy or completeness of information in this document.
[2023-04-05 07:54] LABS: Absolute Lymphocyte Count 1.74 X10^3/uL (0.83-4.51); Absolute Neutrophil Count 5.1 X10^3/uL (2.0-7.7); Basophil# 0.02 X10^3/uL; Basophil% 0.3 % (0-1); Eosinophil# 0.03 X10^3/uL; Eosinophils% 0.4 % (0-5); Hematocrit 33.9 % (37-47); Hemoglobin 11.1 g/dL (12.0-15.0); Lymphocyte # 1.74 X10^3/ul (0.83-4.51); Lymphocyte % 23.2 % (19-41); Mean Corp Hgb Conc 32.7 g/dL (32-36); Mean Corpuscular Hgb 30.3 pg (27.0-32.0); Mean Corpuscular Volume 92.6 fL (81-99); Mean Platelet Vol. 10.4 fl (6.2-12.0); Monocyte# 0.56 X10^3/uL; Monocyte% 7.5 % (0-10); NRBC Flagged by Analyzer 0 % (0-5); Neutrophil # 5.11 X10^3/uL (2.7-7.7); Neutrophil % 67.9 % (47-70); Platelet Count 148 K/mm3 (150-450); RBC Distribution Width SD 50.9 fl (35.1-43.9); Red Blood Count 3.66 M/mm3 (4.2-5.4); White Blood Count 7.5 K/mm3 (4.4-11.0)
[2023-04-05] MEDS: Lactated Ringers 1,000 ML 50 ML IV (08:00)
[2023-04-05] MEDS: LACTATED RINGERS 500 ML 999 ML IV (08:16)
--- NOTE | 2023-04-05 08:49 | HP.PCM.OB_ITS ---
HPI - General General Date of Admission: 04/05/23 Chief Complaint: induction HPI Narrative JUAN PABLO SOMMERS, is a 37 F who presents at 39 weeks for IOL for GDM, glucose managed with metformin. 3566g EFW on 03/18 Maternal Data Information DONOVAN Calculator Estimated Delivery Date Method Current WG Current Estimate 04/11/23 Ultrasound #1 39w 1d Other Estimates 04/18/23 LMP (Certain) 38w 1d PFSH PFSH Medical History 40 weeks gestation of LGA (large for gestational age) fetus Normal vaginal delivery Home Medications vits no.130-ferrous fum 27 mg iron-folic acid 800 mcg tablet ( Vitamin) 1 ea PO DAILY 10/18/17 [History Last Taken 03/29/23] promethazine 12.5 mg tablet 12.5 mg PO Q6H PRN nausea and vomiting 09/08/22 [History Last Taken Unknown] ondansetron 4 mg disintegrating tablet 4 mg PO Q8H PRN nausea and vomiting #60 tabs 09/18/22 [Rx Last Taken Unknown] sertraline 25 mg tablet (Zoloft) 25 mg PO DAILY #30 tabs 11/26/22 [Rx Last Taken Unknown] metformin 500 mg tablet 500 mg PO BID #60 tabs 03/10/23 [Rx Last Taken 03/30/23] Allergy/AdvReac Type Severity Reaction Status Date / Time No Known Allergies Allergy Verified 04/01/23 14:27 Surgical History History of surgery Social History adopted: No household members: spouse and children number of children: 4 current occupational status: unemployed current occupational exposures/hazards: No pets and animals: No history of recent travel: No sexually active: Yes Smoking Status: Never smoker alcohol intake: never substance use type: does not use well-balanced diet: daily or most days caffeine: No eating out: rarely or never during the past year weight has: remained stable what type of physical activity do you participate in: none patricia/cheondoism: [facility] seatbelt use: sometimes do you feel safe at home: Yes 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 Date Name GA/Weeks Outcome Route Bth Weight Gen Labor Lgth Anesthesia Del Locatn Provider FOB 04/03/09 miscarriage @ 9wks 05/17/10 Maureen live - full term 8#13oz Female Rickie Duong 04/14/12 Peg 38 live - full term 8#6oz Female Rickie Duong 10/28/15 miscarriage @ 5wks 10/18/17 Thais 41 live - full term 10# 1 oz Female [facility] Dr. Jamaal Duong 10/23/20 Garry 40 live - full term 9#5oz Male [facility] Dr.Russell Duong Visit Details Expected Delivery Route/Plan with PPTL the next day Labor Preferences- CB/BF classes: [] labor support person: [] labor intervention preferences: [] pain management options preferred: epidural desired cut cord/dad catch: [] : [] PP control planned: [] discussed possible routes of delivery and associated risks: [] special requests: [] Plans Covid status: declined Flu vaccine: dec Tdap vaccine: dec Rhogam: na LARC form signed: declined movement and labor precautions reviewed. Problem list reviewed and updated with the most current plan of care details and appropriate orders placed. Relevant counseling for the gestational age provided. Continue routine care and follow up unless otherwise noted in visit notes/problem list details OB Flowsheet Initial Weight: Not Recorded Date -?-?-?-?-?-?-?-?-?-?-?-?- EGA Weight BP Urine Prot -?-?-?-?-?-?-?-?-?-?-?-?- Glucose FHR FuHt Pres Dilation -?-?-?-?-?-?-?-?-?-?-?-?- Effaced St Visit Note 10/16/22 -?-?-?-?-?-?-?-?-?-?-?--?- 14w 5d 135 lb 8 oz 101/66 Trac e -?-?-?-?-?-?-?-?-?-?-?-?- Negative 160 -?-?-?-?-?-?-?-?-?-?-?-?- JV- heart tones on bedside handheld us today. she has some nausea but not enough to cause vomiting. plan for anatomy scan in 5-7 weeks at [facility]. 11/26/22 -?-?-?-?-?-?-?-?-?-?-?-?- 20w 4d 144 lb 2 oz 118/71 Nega tive -?-?-?-?-?-?-?-?-?-?-?-?- Negative 160 20 -?-?-?-?-?-?-?-?-?-?-?-?- KW- +fm. had US today. no vb/ctx. concerns with increased anxiety today, requesting something to help with this. Zoloft started 12/21/22 -?-?-?-?-?-?-?-?-?-?-?-?- 24w 1d 148 lb 2 oz 113/75 Trac e -?-?-?-?-?-?-?-?-?-?-?-?- Negative 150 23 -?-?-?-?-?-?-?-?-?-?-?-?- KW-no vb/crampin g. +FM. Doing well with the zoloft. compression hose recommended for varicosities. requesting 3 hour gct instead of one hour because she has had to do them with her last 2 pregnancies. 01/20/23 -?-?-?-?-?-?-?-?-?-?-?-?- 28w 3d 157 lb 2 oz 101/69 Nega tive -?-?-?-?-?-?-?-?-?-?-?-?- Negative 145 27 -?-?-?-?-?-?-?-?-?-?-?-?- LC- no vb/ctx//l of. good fm. having increased fatigue, sob/weakness. hbg 8.9. iron studies ordered. will obtain iron infusions based if indicated. pt agreeable. LC- no vb/ctx//lof. good fm. having increased fatigue, sob/weakness. hbg 8.9. iron studies ordered. will obtain iron infusions based if indicated. pt agreeable. failed 3 hour glucose. will set up with glucose monitoring/nutrition for GDM. 02/15/23 -?-?-?-?-?-?-?-?-?-?-?-?- 32w 1d 159 lb 4 oz 99/66 Trac e -?-?-?-?--?-?-?-?-?-?-?-?- Negative 135 31 -?-?-?-?-?-?-?-?-?-?-?-?- KW- no vb/lof/ct x. good fm. continues to be fatigued feeling weak. CBC ordered and infusion discussed. blood sugars reviewed. majority under parameters. discussed 36 week US. transverse lie today-would like version at 37 weeks if needed. 02/26/23 -?-?-?-?-?-?-?-?-?-?-?-?- 33w 5d 160 lb 99/60 -?-?-?-?-?-?-?-?-?-?-?-?- 140 33 Cephalic -?-?-?-?-?-?-?-?-?-?-?-?- kw-no vb/lof/ctx . good. fm. CBC after appt today. IF a C/S desires tubal. 03/10/23 -?-?-?-?-?-?-?-?-?-?-?-?- 35w 3d 163 lb 4 oz 122/69 Nega tive -?-?-?-?-?-?-?-?-?-?-?-?- Negative 155 35 -?-?-?-?-?-?-?-?-?-?--?-?- JV- glucose leve ls are becoming higher and there are 6 times that it was over the recommended level. starting metformin bid. start nsts twice weekly, and schedule ultrasound at 36 weeks for growth. Wants to schedule rpt section at 39 weeks with tubal if no labor and if favorable on morning of section, consider an induction. JV- glucose levels are becom ing higher and there are 6 times that it was over the recommended level. starting metformin bid. start nsts twice weekly, and schedule ultrasound at 36 weeks for growth. Wants tohave a tubal if possible after 39 week induction. 03/15/23 -?-?-?-?-?-?-?-?-?-?-?-?- 36w 1d 161 lb 2 oz 102/66 Nega tive -?-?-?-?-?-?-?-?-?-?-?-?- Negative 140 36 -?-?-?-?-?-?-?-?-?-?--?-?- LC- reactive NST . started metformin on Wednesday. did not bring log. fasting this AM 97. 03/18/23 -?-?-?-?-?-?-?-?-?-?-?-?- 36w 4d 161 lb 4 oz 100/64 Nega tive -?-?-?-?-?-?-?-?-?-?-?-?- Negative 130 -?-?-?-?-?-?-?-?-?-?-?-?- JV- NST reactive today. baby is transverse measuring 39 weeks today. she dec lines an ECV. increasing metformin to 2 500 mg tabs in am and 1 at bedtime. does not want gbs done today and prefers next visit. 03/24/23 -?-?-?-?-?-?-?-?-?-?-?-?- 37w 3d 160 lb 4 oz 122/72 Nega tive -?-?-?-?-?-?-?-?-?-?-?-?- Negative 140 37 Cephalic -?-?-?-?-?-?-?-?-?-?-?-?- JV- cephalic tod ay on bedside us. reactive nSt. pt prefers to self swab for GbS. declines pelvic exam. glucose levels are wtill in normal limits. 03/26/23 -?-?-?-?-?-?-?-?-?-?-?-?- 37w 5d 160 lb 4 oz 95/66 Nega tive -?-?-?-?-?-?-?-?-?-?-?-?- Negative 130 -?-?-?-?-?-?-?-?-?-?-?-?- SM- no vb lof go od fm no regular ctx discussed IOL 04/05 and sterilization 04/06- will try and schedule 03/30/23 -?-?-?-?-?-?-?-?-?-?-?-?- 38w 2d 159 lb 8 oz 95/65 Nega tive -?-?-?-?-?-?-?-?-?-?-?-?- Negative 170 -?-?-?-?-?-?-?-?-?-?-?-?- KW-NST today. to [facility] for extended monitoring and BPP due to tachycardia KW-NST today. to [facility] for exte nded monitoring and BPP due to tachycardia and variables 04/01/23 -?-?-?-?-?-?-?-?-?-?-?-?- 38w 4d 159 lb 2 oz 110/76 Nega tive -?-?-?-?-?-?-?-?-?-?-?-?- Negative 140 38 Cephalic 1 -?-?-?-?-?-?-?-?-?-?-?-?- SM- no vb lof go od fm no regular ctx BS controlled, plan IOL 39 and PPTL if able the next day NST FHR Rate Baby A Baseline: 140 Variability:: Moderate Accelerations:: 15 x 15 FHR Category:: Category I Uterine Activity:: irregular ROS Cardiovascular Cardiovascular: Denies abdominal pain, chest pain, diaphoresis or dyspnea Respiratory/Chest Respiratory/Chest: Denies change in mental status, chest congestion, chest tightness, cough, shortness of breath at rest, shortness of breath with exertion, breast mass, breast pain, breast skin changes, breast swelling, change in breast shape or nipple discharge Genitourinary Genitourinary: Reports change in urinary stream Musculoskeletal Musculoskeletal: Reports none Integumentary Integumentary: Reports none Neurologic Neurologic: Reports none Psychiatric Psychiatric: Reports none Endocrine Endocrinology: Reports none Hematologic/Lymphatic Hematologic/Lymphatic: Reports none Allergic/Immunologic Allergic/Immunologic: Reports none Vital Signs Vital Signs Vital Signs: 04/05/23 07:29 04/05/23 07:29 Pulse Rate 91 Blood Pressure 103/64 BP Systolic 103 BP Diastolic 64 Weight Weight: 158 lb 8.198 oz Body Mass Index (BMI) 28.0 Physical Exam Const alert, oriented x3 and no apparent distress General Appearance: cooperative, comfortable and well kempt Orientation / Consciousness: awake and oriented to person Exam Limitations: no limitations HEENT normocephalic Neck full ROM Chest inspection of chest normal Resp normal respiratory effort, normal air movement and no retractions Effort and Inspection: able to speak in complete sentences and symmetric chest movement Cardio regular rate Peripheral Pulses: pulses 2+ throughout GI normal to inspection, nondistended, normoactive bowel sounds Inspection: gravid no CVA tenderness and appearance of the vagina normal External Female Exam: normal appearance of the urethra; Negative for external lesion OB / External & Speculum: external exam normal Manual OB Exam: estimated gestational size appropriate and presentation cephalic Uterus Palpation: Negative for uterus tender Extremity normal to inspection Skin no rashes or lesions noted Neuro deep tendon reflexes 2+ bilaterally and gait normal Motor Exam: strength 5/5 throughout and clonus absent Psych Activity / Motor Behavior: appropriate eye contact Speech: normal speech Labs Labs Labs: Blood Type A POSITIVE Antibody Screen NEGATIVE Hct 33.9 % (37-47) L Hgb 11.1 g/dL (12.0-15.0) L Obstetrics Ultrasound Syphilis Total Ab Non-reactive Rubella IgG Antibody Non-Reactive (Nonreactive) Hep Bs Antigen Non-Reactive (Nonreactive) Hepatitis C Antibody Non-Reactive (Nonreactive) Chlamydia DNA (RASHARD) Negative (Negative) N.gonorrhoeae DNA (RASHARD) Negative (Negative) HIV 1&2 Antibody Non-Reactive (Nonreactive) Gest Glucose Tolerance MG/DL Rhogam given: No Assessment & Plan (1) Sterilization: COMMENT: plan PPTL PPD1, will try and schedule in advance because IOL is scheduled. 18 IOL and 04/06 PPTL with JV if able or SM (2) Gestational diabetes: QUALIFIERS: Gestational diabetes mellitus control: diet-controlled COMMENT: QID testing, nutrition counseling. starting metformin 03/10/23 PLAN: monitor glucose per protocol. contact if greater than 120 (3) AMA (advanced maternal age) multigravida 35+: COMMENT: declines genetic screening, discussed 36 week growth US and delivery by 39-40 weeks (4) Supervision of high-risk : COMMENT: PRR , DONOVAN 04/12/23, PC Peg Reddy Ellie, Alvin, Ad (5) : QUALIFIERS: Weeks of gestation: 38 weeks Qualified Code(s): Z3A.38 - 38 weeks gestation of COMMENT: gbs neg, normal anatomy. declined genetic & carrier testing (6) Anemia affecting : COMMENT: iron binding levels iron infusions- symptomatic at 8.9 PLAN: CBC -11.1 hbg on admission 04/05 (7) Anxiety during : COMMENT: on zoloft, counseling recommended/encouraged. PLAN: Plan admit to [facility] ruiz bulb with pitocin induction- pt requesting epidural placement prior to instilling GBS negative. cat 1 tracing- reassuring maternal and status. x1 2 minute decel with con traction upon admission, obtaining fluid bolus for epidural placement, no further decelerations resolved to cat [address] ronquillo updated on admission, exam and poc. agrees with co-management for GDM
[2023-04-05 09:00] LABS: Syphilis Antibodies Non-reactive
[2023-04-05 09:37] LABS: Bedside Glucose 76 mg/dL (74-106)
[2023-04-05] MEDS: Oxytocin 15 Units/NS 250ml 15 UNITS/250 ML IV.SOLN 2 UNITS IV (10:45)
[2023-04-05] MEDS: 0.9% Normal Saline Single 100 ML IV.SOLN. INTRA-UTER (10:45)
[2023-04-05] MEDS: fentaNYL-bupivacaine (epidural) 100 ML BAG EPIDURAL ×3 (11:00→20:18)
[2023-04-05 13:16] LABS: Bedside Glucose 73 mg/dL (74-106)
[2023-04-05] MEDS: Lactated Ringers 1,000 ML 200 ML IV ×2 (14:32→19:35)
[2023-04-05 16:27] LABS: Bedside Glucose 67 mg/dL (74-106)
[2023-04-05 18:38] LABS: Bedside Glucose 85 mg/dL (74-106)
[2023-04-05 20:18] LABS: Bedside Glucose 78 mg/dL (74-106)
[2023-04-06] VITALS (25 sets, daily range): BP systolic 93–121; BP diastolic 50–69; PULSE 68–88; RESP 16; TEMP 36.1–37.1; O2SAT 92–94
[2023-04-06 00:01] LABS: Bedside Glucose 86 mg/dL (74-106)
--- NOTE | 2023-04-06 00:37 | EX.PCM.OBRPT ---
Assessment & Plan (1) (spontaneous vaginal delivery): COMMENT: LC 04/06/23 boy. IOL GDM (2) Shoulder dystocia, delivered: COMMENT: 53 seconds. APGARS 7&9 Maternal Data Information DONOVAN Calculator Estimated Delivery Date Method Current WG Current Estimate 04/11/23 Ultrasound #1 39w 2d Other Estimates 04/18/23 LMP (Certain) 38w 2d Final DONOVAN: 04/11/23 Final DONOVAN Source: LMP Gestational age: 39.2 Vaginal Delivery Maternal Presentation Maternal Presentation: Medically Indicated Induction Maternal Presentation: IOL for GDM. ruiz bulb/pitocin. AROM. fully dilated with good descent Type of Induction: Pitocin and Ruiz Bulb Medical Reason for Induction: Maternal Medical Condition: list: (GDM, metformin controlled) Operative Information Date of Procedure: 04/06/23 Pre-Operative Diagnosis: see problem list Post-Operative Diagnosis: Surgery / Procedure Performed: Spontaneous Vaginal Delivery Type of Anesthesia: Epidural Drain: Ruiz to straight drain Estimated Blood Loss: 200 Time of Delivery: 00:17 Findings Description of Procedure: Patient began pushing and delivered the head in the VIANEY presentation. The head was delivered atraumatically. Shoulder dystocia reconigized, Karrie and suprapubic pressure and sunshine manevuer implemented to deliver anterior and posterior shoulders followed by the rest of the infant and the infant was placed on the maternal abdomen. total of 53 seconds. Delayed cord clamping was employed for approximately 60 seconds. Cord was clamped and cut and gentle traction was applied to the cord and the placenta delivered spontaneously immediately following it was noted to be intact with three-vessel cord. venous and arterial gases obtained. The perineum and vagina were inspected and noted to have no laceration. EBL was 200cc. Patient and infant tolerated delivery well, entered recovery phase bonding skin to skin. Dr. Alves updated on delivery and shoulder dystocia. routine pp orders. Presentation: Vertex Amniotic Membrane Rupture Type: Artificial Time of Membrane Rupture: 1450 Amniotic Fluid Description: Clear Placental Delivery Description: Spontaneous Placenta Disposition: [facility] Cord Vessel Description: 3 Vessels Cord Entanglement: None Cord Gases: ABG and VBG Infant A Gender: Male (1 minute): 7 (5 minute): 9 Delayed Cord Clamping: Yes Post Vaginal Delivery Medications Given After Delivery: IV Pitocin Episiotomy Description: None Laceration: None Procedures Urinary/Genital [id number]: [id number] Vaginal Delivery [facility]
--- NOTE | 2023-04-06 00:46 | DCINST_ITS ---
Discharge Instructions Diet Discharge Diet: No restrictions Activity Discharge Activity: May Not Drive and May Shower May resume sexual activity in: 6 weeks Weight Bearing Status: Full weight bearing Dressing / Incision Call your doctor if your incision/area has: Sudden Increased Bleeding, Increased Pain/ Swelling and Foul Smelling Discharge Call your doctor if you observe: Fever of 101 or Higher, Numbness or Tingling, Change in Color, Inability to urinate, Inability to have a bowel movement, Using more than 1 pad per hour, Shortness of breath, Dizziness, Fainting spells, Chest pain, Calf discomfort and Uncontrolled pain Follow Up Care Please Follow Up With: Jaci Carson CNM When: 6 weeks , please call office to make an appointment. Congratulations on the of your baby! Test Results: Test results from this visit will be discussed in further detail at your follow- up appointment, if applicable. Discharge Plan Admission Admit Date/Time: 04/05/23 06:55 Attending Provider: Jaci Carson Primary Care Provider: Care Physician,Barbra Primary Discharge Orders/Prescriptions Prescriptions: No Action sertraline [Zoloft] 25 mg tablet 25 mg PO DAILY Qty: 30 3RF metformin 500 mg tablet 500 mg PO BID Qty: 60 3RF Vitamin 1 EACH tablet 1 ea PO DAILY Referrals / Follow Up: Care Physician,No Primary [Primary Care Provider] -
[2023-04-06] MEDS: Oxytocin 15 Units/NS 250ml 15 UNITS/250 ML IV.SOLN 83 UNITS IV (00:58)
[2023-04-06 01:12] LABS: Bedside Glucose 124 mg/dL (74-106)
[2023-04-06 02:07] LABS: Bedside Glucose 108 mg/dL (74-106)
[2023-04-06] MEDS: Acetaminophen 500 MG Tablet 1000 MG PO ×2 (03:42→20:53)
[2023-04-06] MEDS: 0.9% Saline Lock 10 ML Syringe IV (04:00)
--- NOTE | 2023-04-06 07:30 | FALS_PTH ---
PATHOLOGY RESULTS PATIENT: JUAN PABLO SOMMERS LOC: [facility] U#:[id number] AGE/SX: 37/F [facility] RE04/05/[address]: Jaci Carson CNM : 1985 BED: 1 DIS: 04/07/2023 SPEC #: [id number] RECD: 04/06/23 11:46 STATUS: PATRICIA REQ #: [id number] PHILIP: 04/06/23 07:[address]: Sarah Bonner DEPT: SURGICAL PATHOLOGY RECD BY: Reyna Caballero ENTERED: 04/06/23 11:47 SP TYPE: FALL TUBES OTHR DR: Jaci Carson CNM No Primary Care Phys Tissues: Fallopian tube Procedures: Surgery Specimen Level II Comments: @ Ordering doctor for II edited from JOSE to @ by YAYO at 04/06/23 1519 @ Submitting doctor edited from JOSE to DR.JVANDE Mclean by YAYO at 04/06/23 1519 HEADER OPERATION: bilateral salpingectomy PRE-OP DIAGNOSIS: Sterilization TISSUE SUBMITTED: Bilateral fallopian tubes MICROSCOPIC DIAGNOSIS Bilateral fallopian tubes, salpingectomy: Bilateral fallopian tubes, no pathologic diagnosis. JESSICA:jie 04/07/2023 MICROSCOPIC DESCRIPTION Slides are reviewed. GROSS DESCRIPTION Received in fixative is one container labeled with the patient's name and designated bilateral fallopian tubes. The specimen consists of bilateral fallopian tubes including fimbrial ends measuring 8.5 cm in length and 0.6 cm in diameter and 10.0 cm in length and 0.6 cm in diameter. The fallopian tubes are not identified as right or left. Sections reveal unremarkable cut surfaces. Perinatology Physician sections are submitted in two cassettes with each cassette containing one fallopian tube. / JESSICA:jie 04/06/2023 TC:4 CPT: 33081 x2
--- NOTE | 2023-04-06 07:41 | NURSING ---
patient taken off unit for PP tubal by surgery team
[2023-04-06] MEDS: Bupivacaine 0.25% 30 ML Vial (07:50)
--- NOTE | 2023-04-06 08:17 | OP.PCM_ITS ---
Problems Associated Problem List Diagnoses (1) Sterilization: Report of Operation Date of Procedure: 04/06/23 Pre-Operative Diagnosis: desires sterilization, immediate post period Post-Operative Diagnosis: desires sterilization, immediate post period Surgery/Procedure Performed:: bilateral salpingectomy Surgeon: Sarah Bonner hostess party sales representative: Pascual Zimmer Type of Anesthesia: General Specimen's removed: bilateral fallopian tubes Estimated Blood Loss (mL): 5cc Description of Procedure: Patient was taken to the operating room and epidural anesthesia was not found to be adequate and the patient was converted to general anesthesia. Patient was placed in the dorsal supine position was prepped and draped in normal sterile fashion. Jewell catheter was used to drain the bladder. Infra umbilical incision was made with a scalpel after injecting with marcaine and carried through the underlying layer of the fascia with a scalpel fascial incision was extended bilaterally with Parnell scissors and bowel packed away and the right fallopian tube identified confirmed to be fallopian tube by following it out to the fimbria and the ligasure device was used to remove the entire fallopian tube. This was repeated on the left side where the tube was identified and followed out to the fimbria and confirmed to be fallopian tube and then the tube was removed completely. Excellent hemostasis was noted. Fascia was closed with 0 Vicryl and skin closed with 3-0 Monocryl. No complications. Patient was taken recovery in stable condition. Procedure Start Time: 08:04 Procedure Stop Time: 08:26 Complications none Admit VTE Documentation VTE Present on Admission: No VTE Mechan Device Prophylaxis: SCD's Multi Select Codes Urinary/Genital Urinary/Genital CPT Codes: 64101 PPTL
--- NOTE | 2023-04-06 09:15 | NURSING ---
patient brought back to room by PACU nurse, this RN spoke to JV at nurses station and states to continue VS Q4 hours and to wait to get patient to ambulate for 2-3 hours, this RN verbalized understanding
[2023-04-06 09:36] LABS: Bedside Glucose 76 mg/dL (74-106)
[2023-04-06] MEDS: Naproxen 500 MG Tablet PO (10:13)
[2023-04-06] MEDS: Sertraline 50 MG Tablet 25 MG PO (10:14)
--- NOTE | 2023-04-06 15:08 | CASEMGMT ---
Social Work Assessment Labor and Delivery Unit Patient Address: [address] [place] [address] Phone number: [phone] Date of Referral: 04/06/23 Time of Referral:? 015 Referred By: Jaci Carson Date of Intervention: ??04/06/23 Time of Intervention:? 4070 Reason for Referral:? history of anxiety Sw completed chart review and acknowledges social work consult due to maternal history of anxiety. Sw presented to bedside and introduced self to mother of baby (SHAUN Milligan) and explained sw role during hospitalization. Sw completed psychosocial assessment, assessed for needs or concerns and asked MOB to complete [place] Depression Scale. History obtained from: medical records, MOB Household composition: Currently residing in the family home is DANILO BROOKE, their 4 other children (Maureen (12), Kiley (11), Thais (5) and Garry (2). MENDY denies any issues or concerns with their housing at this time. Patient's parent/guardian status:?Mendy states that she and DANILO have been together for 15 years. They met through their local young person group. MENDY denies any issues with domestic violence or intimate partner violence. ? Medical History: ?MENDY is 37 year old female who is 7, para 4- now 5 following labor and delivery of baby. MENDY received routine care during with [facility]. MENDY presented to hospital for an induction of labor and delivered baby on 04/06/23 via vaginal delivery at 39 weeks gestation. MENDY states that she had gestational diabetes this , and she experienced a lot of anxiety which is new for her and has never happened during before. Baby boy, named Erik, was born weighing 9lb 9oz and his apgars were 7 and 9 at one and five minutes of life respectfully. Baby will be followed by Educational Status:? Financial Status: Supplies:?? Childcare/Caregiver(s):? Transportation:?? Programs/Agencies Involved: ??? Children Services/Legal Issues:??? Behavioral Health Issues: ??Mental Health History:??? Substance Use History:?? Family History:? Drug Screens: ?? Family/Social Stressors:? Support Systems: Depression/Shaken Baby/Safe Sleeping:? ASSESSMENT:? Safe Plan of Care for infant related to substance use:? PLAN:? ?No other services requested or indicated.
[2023-04-07 01:30] VITALS: BP 96/51; PULSE 77; RESP 16; TEMP 36.3
--- NOTE | 2023-04-07 07:47 | PN.OBGYN_ITS ---
Subjective Subjective pt states that she is doing very well and wants to go home. She has some mild tenderness on her right lower side and some soreness around her tubal incision site. Denies fevers, chills, nausea, vomiting. Objective Data Objective Data Vital Signs: Vital Signs Temp Pulse Resp BP Pulse Ox O2 Del Method 97.3 F L 77 16 96/51 L 94 Room Air 04/07/23 01:30 04/07/23 01:30 04/07/23 01:30 04/07/23 01:30 04/06/23 08:53 04/07/23 01:30 Oxygen Delivery Method Room Air Weight: 158 lb 8.198 oz Body Mass Index (BMI) 28.0 Intake & Output: Intake and Output for Last 24 Hours 04/05/23 04/06/23 04/07/23 23:59 23:59 23:59 Intake Total 2885.70 / 2885.70 1384.30 / 1384.30 Output Total 2700 / 2700 2700 / 2700 Balance 185.70 / 185.70 -1315.70 / -1315.70 Lab / Micro Data 04/05/23 07:40 Labs: Laboratory Results - last 24 hr 04/06/23 09:17: POC Glucose 76 ROS Constitutional Constitutional: Denies chills, fatigue, fever(s), poor appetite or weakness Eyes Eyes: Denies blurry vision, change in vision, seeing flashes or spots in vision ENT HEENT: Denies dizziness, headache(s), loss taste/smell or sore throat Cardiovascular Cardiovascular: Denies chest pain, dizziness, dyspnea, irregular heart rhythm, palpitations or rapid heart rate Respiratory/Chest Respiratory/Chest: Denies chest tightness, cough, dyspnea or breast pain Gastrointestinal Gastrointestinal: Denies abdominal pain, constipation or vomiting Genitourinary Genitourinary: Denies dysuria or flank pain Musculoskeletal Musculoskeletal: Denies difficulty walking, joint pain, limited range of motion or numbness Neurologic Neurologic: Denies abnormal movements, abnormal speech, dizziness, numbness, seizure-like activity or syncope Psychiatric Psychiatric: Denies anxiety, behavioral changes, change in appetite, confusion, depression or suicidal thoughts Physical Exam Const alert, oriented x3 and no apparent distress General Appearance: cooperative and comfortable Resp normal respiratory effort Cardio regular rate GI normal to inspection, nondistended, normoactive bowel sounds GI Narrative: uterus is firm below umbilicus Palpation: soft Back/Spine no CVA tenderness and thoraco-lumbar ROM normal Extremity normal to inspection, no clubbing, cyanosis or edema, no calf tenderness and no pedal edema Psych mental status grossly normal, thought process normal, cooperative, affect no rmal, speech normal, activity/motor behavior normal, denies homicidal ideation and denies suicidal ideation Assessment & Plan (1) Status post tubal ligation at time of delivery, current hosp: (2) Shoulder dystocia, delivered: COMMENT: 53 seconds. APGARS 7&9 (3) (spontaneous vaginal delivery): COMMENT: 04/06/23 boy. IOL GDM PLAN: Plan s/p PPD #2, pod #1 from a salpingectomy 1. routine post delivery care 2. breast feeding- support given 3. rh positive 4. rubella immune 5. ok to dc to home later today
[2023-04-07 08:00] VITALS: BP 97/49; PULSE 95; RESP 16; TEMP 36.3; O2SAT 95
[2023-04-07] MEDS: Senna/Docusate Sodium 1 Tablet PO (10:07)
[2023-04-07] MEDS: Sertraline 50 MG Tablet 25 MG PO (10:08)
[2023-04-07 13:46] VITALS: BP 110/64; PULSE 74; RESP 16; TEMP 36.6; O2SAT 97
== END 2023-04-07 14:35 | disposition home or self-care (01) | DRG 798 ==
PROVIDERS: Obstetrics & Gynecology; Admitting Provider Registered Nurse; Visit Provider Registered Nurse
PROC: 0UL70ZZ Occlusion of Bilateral Fallopian Tubes, Open Approach (ICD-10-PCS; principal; 2023-04-06 07:15)
DX: O66.0 Obstructed labor due to shoulder dystocia (principal); Z37.0 Single live birth; O24.425 Gestational diabetes mellitus in childbirth, controlled by oral hypoglycemic drugs; F41.9 Anxiety disorder, unspecified; O26.23 Pregnancy care for patient with recurrent pregnancy loss, third trimester; Z30.2 Encounter for sterilization; Z3A.39 39 weeks gestation of pregnancy; O99.02 Anemia complicating childbirth; O99.344 Other mental disorders complicating childbirth
CPT/HCPCS: 59025; 59050; 76815; 82962; 85025; 86780; 86850; 86900; 86901; 88302; 99221; J7120; A4216; G0378; J2405